=== PATIENT | female | born 1975 | race Caucasian/White ===

== ENCOUNTER 2021-04-21 10:47 | Emergency (ER) | payer OTHER ==
[2021-04-21 12:11] LABS: HEMOGLOBIN 12.3 gm/dl (12.3-15.3); RED BLOOD COUNT 4.03 M/UL (4.00-5.10); WHITE BLOOD COUNT 6.7 K/UL (4.5-11.0)
[2021-04-21 12:38] LABS: BUN/CREATININE RATIO 17 (0-10)
[2021-04-21] MEDS ORDERED: BACTROBAN OINT22 GM TOP (15:02)
[2021-04-21] MEDS ORDERED: DOXYCYCLINE HY100 M2 PO (15:02)
== END 2021-04-21 15:25 | disposition home or self-care (01) ==
LOC: ER1 10:47
PROVIDERS: Physician Assistant
DX: J02.9 Acute pharyngitis, unspecified (principal); R04.2 Hemoptysis; L03.114 Cellulitis of left upper limb; I10 Essential (primary) hypertension; M54.50 Low back pain, unspecified; R91.1 Solitary pulmonary nodule; Z79.82 Long term (current) use of aspirin; Z20.822 Contact with and (suspected) exposure to COVID-19
CPT/HCPCS: 70491; 71045; 71260; 80053; 81001; 84703; 85025; 86403; 87081; 87880; 99284; Q9967; U0002